=== PATIENT | male | born 1990 | race Caucasian/White ===

== ENCOUNTER 2016-08-29 18:10 | Emergency (ER) ==
[2016-08-29 19:09] LABS: BASOPHILS # (AUTO) 0.1 K/uL (0-0.2); BASOPHILS % (AUTO) 0.7 % (0.0-3.0); EOSINOPHILS # (AUTO) 0.8 K/ul (0.0-0.7); EOSINOPHILS % (AUTO) 6.7 % (0.0-7.0); HEMATOCRIT 42.5 % (42.0-52.0); HEMOGLOBIN 14.3 g/dl (14.0-18.0); IMMATURE GRANULOCYTE % (AUTO) 0.3 % (0.0-5.0); LYMPHOCYTES # (AUTO) 3.5 K/uL (0.60-3.4); LYMPHOCYTES % (AUTO) 27.8 (10.0-50.0); MEAN CORPUSCULAR HEMOGLOBIN 30.2 pg (27.0-31.0); MEAN CORPUSCULAR HGB CONC 33.6 (31.8-35.4); MEAN CORPUSCULAR VOLUME 89.9 fl (80.0-94.0); MONOCYTES # (AUTO) 0.7 K/uL (0.4-2.0); MONOCYTES % (AUTO) 5.9 (0-10); NEUTROPHILS # (AUTO) 7.4 K/ul (2.0-6.9); NEUTROPHILS % (AUTO) 58.6; PLATELET COUNT 258 10^3/uL (140-440); RED BLOOD COUNT 4.73 10^6/ul (4.70-6.10); WHITE BLOOD COUNT 12.56 K/ul (4.2-10.2)
[2016-08-29 19:10] LABS: ADD URINE MICROSCOPIC NO; BILIRUBIN,URINE Negative (NEGATIVE); KETONES,URINE Negative (NEGATIVE); LEUKOCYTE ESTERASE ,URINE Negative (NEGATIVE); NITRITE,URINE Negative (NEGATIVE); PH,URINE 6.5 (5-9); PROTEIN,URINE Negative (NEGATIVE); URINE, BLOOD Negative (NEGATIVE)
[2016-08-29 19:29] LABS: ALBUMIN 4.4 g/dL (3.4-5.0); ALBUMIN/GLOBULIN RATIO 1.22; ANION GAP 12.3; BILIRUBIN,TOTAL 0.38 mg/dL (0.00-1.20); BUN/CREATININE RATIO 15.83; CALCIUM 9.7 mg/dL (8.2-10.2); CREATININE 1.2 mg/dL (0.60-1.10); POTASSIUM 4.3 mmol/L (3.5-5.1)
[2016-08-29 19:42] LABS: ERYTHROCYTE SEDIMENTATION RATE 4 mm/hr (0-15); ESR INTERNAL QC INTERNAL QC VALID
--- NOTE | 2016-08-29 19:43 | CT ---
EXAM: CT chest without contrast HISTORY: Chest wall pain TECHNIQUE: Multi-slice transaxial helical. Coronal and sagital reformations were performed. COMPARISON: 07/29/2014. FINDINGS: The heart is normal in size. No evidence of mediastinal adenopathy. The visualized thyroid appears unremarkable. There is no axillary adenopathy. The visualized upper abdomen appears unremarkable within the confines of a noncontrast exam. No evidence of displaced rib fracture is identified. Th e visualized vertebral body heights and intervertebral disc spaces of the thoracic spine is present. The sternum appears unremarkable. A 3 mm pulmonary nodule is present within the right lung base. There is no focal airspace opacity, pleural effusion, or pneumothorax. IMPRESSION: 1. No acute cardiopulmonary findings. 2. No evidence of displaced rib fracture. 3. 3 mm right lower lobe pulmonary nodule. Typically pulmonary nodules do not require follow up in this age group.
[2016-08-29 19:47] VITALS: BP 117/64; TEMP 98; BMI 24.0
--- NOTE | 2016-08-29 19:47 | CT ---
EXAM: CT abdomen pelvis without contrast HISTORY: Abdominal pain COMPARISON: None TECHNIQUE: CT abdomen pelvis performed without intravenous contrast. Coronal and sagittal reformat bill images obtained FINDINGS: Please see separate port CT chest regarding findings in the lower chest. No acute abnorm alities of the bones. Mild intervertebral disc is narrowing L5-S1. Evaluation organ parenchyma wright ited without contrast. Liver, gallbladder, pancreas, spleen, adrenals appear normal. No hydronephr osis or nephrolithiasis. Bladder is only minimally distended and poorly evaluated. Prostate normal in size. Aorta normal in caliber. No lymphadenopathy or ascites. Stomach appears normal. No dil ated loops small bowel. Appendix appears normal. Colon unremarkable. IMPRESSION: No acute inflammatory process identified in the abdomen or pelvis.
--- NOTE | 2016-08-29 20:12 | ED.PDOC ---
General ED Provider: Dr. SHANE MCMANUS-ER Chief Complaint: Back Pain Stated Complaint: im hurting--been hjurting for a while Time Seen by Physician: 19:45 Mode of Arrival: Walk-In Information Source: Patient Exam Limitations: No limitations Nursing and Triage Documentation Reviewed and Agree: Yes GI Complaint Exam - Abdominal Pain Complaint/Exam Onset: Gradual Duration: several weeks Symptoms Are: Still present Timing: Constant Initial Severity: Mild Current Severity: Mild Radiates To: Reports: Flank Character: Reports: Dull, Aching Aggravating: Reports: None Alleviating: Reports: None Associated Signs and Symptoms: Denies: Diaphoresis, Fever, Cough, Chest pain, Dizziness, Back pain, Constipation, Blood in stool, Dysuria, Urinary frequency, Decreased urine output, Decreased appetite, Discharge, Nausea, Vomiting, Diarrhea, Decreased activity Related History: Reports: Similar episode AAA Risk Factors: Reports: None Cardiac Risk Factors: Reports: None Testicular Torsion Risk Factors: Reports: None Surgical Obstruction Risk Factors: Reports: None Related Surgical History: Reports: None Abdominal Findings: Present: None Differential Diagnoses: Constipation Review of Systems - Review Of Systems Constitutional: Reports: No symptoms Eyes: Reports: No symptoms Ears, Nose, Mouth, Throat: Reports: No symptoms Respiratory: Reports: No symptoms Cardiac: Reports: No symptoms GI: Reports: No symptoms : Reports: No symptoms Musculoskeletal: Reports: No symptoms Skin: Reports: No symptoms Neurological: Reports: No symptoms Endocrine: Reports: No symptoms Hematologic/Lymphatic: Reports: No symptoms All Other Systems: Reviewed and Negative Past Medical History - Past Medical History Endocrine: Reports: Unknown Cardiovascular: Reports: Unknown Respiratory: Reports: Unknown Hematological: Reports: Unknown Gastrointestinal: Reports: Unknown Genitourinary: Reports: Unknown Neuro/Psych: Reports: Unknown Musculoskeletal: Reports: Unknown Cancer: Reports: Unknown - Surgical History General Surgical History: Reports: Unknown - Family History Family History: Reports: Unknown - Social History Smoking Status: Former smoker Hx Substance Use: No Alcohol Screening: None Lives: With family Physical Exam - Physical Exam Appearance: Well-appearing, No pain distress, Well-nourished Pain Distress: Mild Eyes: AMAYA, EOMI, Conjunctiva clear ENT: Ears normal, Nose normal, Oropharynx normal Neck: Supple Respiratory: Airway patent, Breath sounds clear, Breath sounds equal, Respirations nonlabored Cardiovascular: RRR, Pulses normal, No rub, No murmur GI/: Soft, Nontender, No masses, Bowel sounds normal, No Organomegaly Musculoskeletal: Normal strength Skin: Warm, Dry, Normal color Neurological: Sensation intact, Motor intact, Reflexes intact, Cranial nerves intact, Alert, Oriented Psychiatric: Affect appropriate, Mood appropriate Interpretation - Radiology Interpretation Radiology Interpretation By: Radiologist Radiology Results: Negative Exam Interpreted: CT Scan Critical Care Note - Critical Care Note Total Time (mins): 0 Course - Course Hematology/Chemistry: 08/29/16 18:59 08/29/16 18:59 Orders, Labs, Meds: Lab Review 08/29/16 08/29/16 08/29/16 18:55 18:59 19:00 WBC 12.56 H RBC 4.73 Hgb 14.3 Hct 42.5 MCV 89.9 MCH 30.2 MCHC 33.6 RDW Coeff of [place] 12.6 Plt Count 258 Immature Gran % (Auto) 0.3 Neut % (Auto) 58.6 Lymph % (Auto) 27.8 [place] % (Auto) 5.9 Eos % (Auto) 6.7 Baso % (Auto) 0.7 Immature Gran # (Auto) 0.0 Neut # 7.4 H Lymph # 3.5 H [place] # 0.7 Eos # 0.8 H Baso # 0.1 ESR 4 D-Dimer 130.94 H Sodium 137 Potassium 4.3 Chloride 103 Carbon Dioxide 26 Anion Gap 12.3 BUN 19 H Creatinine 1.20 H Estimated GFR (MDRD) 74.00 BUN/Creatinine Ratio 15.83 Glucose 87 Calcium 9.7 Total Bilirubin 0.38 AST 21 ALT 20 Alkaline Phosphatase 54 Total Protein 8.0 Albumin 4.4 Globulin 3.6 Albumin/Globulin Ratio 1.22 Amylase 42 Lipase 50 Urine Color Yellow Urine Clarity Clear Urine pH 6.5 Ur Specific [place] 1.020 Urine Protein Negative Urine Glucose (UA) Negative Urine Ketones Negative Urine Blood Negative Urine Nitrite Negative Urine Bilirubin Negative Urine Urobilinogen 1.0 Ur Leukocyte Esterase Negative Orders Category Date Time Status AMYLASE Stat LAB 08/29/16 18:59 Completed CBC W/ AUTO DIFF Stat LAB 08/29/16 18:59 Completed COMPREHENSIVE METABOLIC PANEL Stat LAB 08/29/16 18:59 Completed D-DIMER Stat LAB 08/29/16 18:59 Completed ESR Stat LAB 08/29/16 19:00 Completed LIPASE Stat LAB 08/29/16 18:59 Completed URINALYSIS C & S IF INDICATED Stat LAB 08/29/16 18:[address] ABDOMEN/PELVIS WO CONTRAST Stat RADS 08/29/16 18:[address] CHEST W/O CONTRAST Stat RADS 08/29/16 18:51 Completed Vital Signs: Temp Pulse Resp BP Pulse Ox 08/29/16 19:43 98 F 60 20 117/64 98 Departure - Departure Time of Disposition: 20:13 Disposition: HOME SELF-CARE Discharge Problem: Flank pain Instructions: Flank Pain (ED) Condition: Good Pt referred to PMD for follow-up: Yes Additional Instructions: librax q 8hrs prn pain #21--f/u with pcp about lung nodule--consider gb testing as an outpatient Allergies/Adverse Reactions: Allergies strawberry [[place]] Adverse Reaction (Verified 08/29/16 18:22) Home Medications: Ambulatory Orders 1 [No Reported Medications] 06/25/13 Disposition Discussed With: Patient, Family
== END 2016-08-29 20:15 | disposition home or self-care (01) ==
LOC: ED 18:10
DX: M54.9 Dorsalgia, unspecified (principal); R10.9 Unspecified abdominal pain; R91.1 Solitary pulmonary nodule
CPT/HCPCS: 36415; 80053; 81001; 82150; 83690; 85025; 85379; 85651; 99283

== ENCOUNTER 2016-09-04 10:21 | Outpatient (CLI) ==
--- NOTE | 2016-09-04 11:35 | US ---
EXAM: Limited abdominal ultrasound. History: Right upper quadrant abdominal pain. Comparison: CT abdomen pelvis 08/29 2016 Technique: Multiple sonographic images through the abdomen were obtained. Color duplex Doppler was used to interrogate vascular flow. Findings: The liver is not enlarged according to the sonographic measurement given. No focal liver lesions id entified sonographically. Visualized pancreas demonstrates no gross abnormality. No abdominal asci azra. There is antegrade flow within the main portal vein. Limited visualization of the right kidne y demonstrates no evidence for hydronephrosis. Common bile duct measures 0.5 cm in caliber. 0.3 cm gallbladder wall polyp versus non mobile stone . There is gallbladder sludge. No gallbladder wall thickening. Impression: Gallbladder sludge. Small gallbladder wall polyp versus non mobile stone. No gallblad casimiro wall thickening.
== END 2016-09-04 10:22 | disposition home or self-care (01) ==
LOC: RAD 10:21
PROVIDERS: ATTEND Nurse Practitioner Family
DX: R10.9 Unspecified abdominal pain (principal); K52.9 Noninfective gastroenteritis and colitis, unspecified

== ENCOUNTER 2016-09-11 10:51 | Outpatient (CLI) ==
--- NOTE | 2016-09-11 12:32 | CT ---
EXAM: CT THORAX HISTORY: Pulmonary nodule. TECHNIQUE: CT thorax with intravenous contrast. 5-mm axial sections. Coronal and sagittal re-forma tions. 75 mL Omnipaque COMPARISON: 08/29/2016 FINDINGS: Normal heart and thoracic aorta. No mediastinal or hilar lymphadenopathy. Redemonstration of the tiny 0.32 cm nodule of the right lower lobe. Lungs are otherwise clear and u nremarkable. Normal vascularity. No pleural fluid or pneumothorax. The bones appear grossly normal. Peripheral soft tissues unremarkable. IMPRESSION: Tiny right lower lobe nodule would be most likely benign in a patient of this age. Othe rwise unremarkable exam.
== END 2016-09-11 10:52 | disposition home or self-care (01) ==
LOC: RAD 10:51
PROVIDERS: ATTEND Nurse Practitioner Family
DX: R91.1 Solitary pulmonary nodule (principal); Z72.0 Tobacco use

== ENCOUNTER 2016-11-14 19:23 | Outpatient (CLI) | END 2016-11-14 19:24 | disposition home or self-care (01) | LOC: AMBL 19:23 | PROVIDERS: ATTEND Family Medicine | DX: R42 Dizziness and giddiness (principal); R40.4 Transient alteration of awareness; R25.1 Tremor, unspecified; R53.1 Weakness ==